=== PATIENT | male | born 1950 | race African-American/Black ===

== ENCOUNTER 2016-09-10 07:15 | Emergency (ER) | payer SELFPAY ==
[~2016-09-10] VITALS: Ht 177.8 cm; Wt 79.0 kg
[~2016-09-10 07:15] MED LIST: MELO15TA2 PO; METHO500 PO; TRAM50 PO
[2016-09-10 07:17] VITALS: BP 183/115; PULSE 77; RESP 16; TEMP 98; O2SAT 100
[2016-09-10 07:27] VITALS: BP 179/104
--- NOTE | 2016-09-10 07:55 | PD ---
HPI . chronic back pain and sciatica Chief Complaint: Injury Time Seen by Provider: 07:55 Travel History International Travel<30 days: No Contact w/Intl Traveler<30days: No Traveled to known affect area: No History of Present Illness HPI 65-year-old male with long-standing history of chronic back pain, who usually follows with the [facility] with complaints of back pain and sciatica on the right side of his lower extremity. Patient says he has a long-standing history of sciatica and usually takes pain medicine to get rid of the symptoms. He requests 30 lortabs and states that usually works well for him. He states the pain is radiating from the right buttocks all the way down to the knee. He reports falling several days prior, but denies any injury. He denies any loss of consciousness or head trauma. Patient denies any saddle anesthesia, bowel or bladder dysfunction. He is requesting MRI, and tells me he has not had one several years. Patient's blood pressure is elevated, however patient states his blood pressure remains elevated whenever he is in bouts of pain. He denies any history of hypertension. PFSH Past Medical History Arthritis: Yes Asthma: No Heart Rhythm Problems: No Cardiovascular Problems: No High Cholesterol: No Chest Pain: No Congestive Heart Failure: No COPD: No Cerebrovascular Accident: No GERD: No Genitourinary: No Headaches: No Hepatitis: Yes (HEP C) Hiatal Hernia: No Hypertension: Yes Kidney Stones: No Musculoskeletal: Yes (CHRONIC BACK PAIN / SCIATICA) Neurologic: No Reproductive: No Respiratory: No Migraines: No Myocardial Infarction: No Renal Failure: No Seizures: No Sleep Apnea: No Ulcer: No Past Surgical History Abdominal Surgery: No Appendectomy: No Cardiac Surgery: No Cholecystectomy: No Ear Surgery: No Endocrine Surgery: No Eye Surgery: No Genitourinary Surgery: No Gynecologic Surgery: No Oral Surgery: No Thoracic Surgery: No Other Surgery: Yes (I&D SPIDERBITE/INFECTION 2008) Social History Alcohol Use: Yes ( DAILY) Tobacco Use: Yes (1/2 PPD) Substance Use: Yes (THC DAILY) Allergies-Medications (Allergen,Severity, Reaction): Coded Allergies: No Known Allergies (Verified , 09/10/16) Reported Meds & Prescriptions Reported Meds & Active Scripts Active Ibuprofen 800 Mg Tab 800 Mg PO TID Flexeril (Cyclobenzaprine HCl) 10 Mg Tab 10 Mg PO BID Review of Systems Except as stated in HPI: all other systems reviewed are Neg General / Constitutional: No: Fever Eyes: No: Visual changes HENT: No: Headaches Cardiovascular: No: Chest Pain or Discomfort Respiratory: No: Shortness of Breath Gastrointestinal: No: Abdominal Pain Genitourinary: No: Dysuria Musculoskeletal: Positive: Arthralgias, Limited ROM, Pain (right leg pain), No : Myalgias, Weakness Skin: No Rash Neurologic: No: Weakness Psychiatric: No: Depression Endocrine: No: Polydipsia Hematologic/Lymphatic: No: Easy Bruising Physical Exam Narrative GENERAL: AAO x 3, no acute distress, Well-nourished, well-developed patient. SKIN: Warm and dry. No visible rashes or bruising. HEAD: Normocephalic and atraumatic. EYES: No scleral icterus. Clear Fundi. ENT: No nasal drainage noted. Airway patent. NECK: Supple, trachea midline. No JVD. CARDIOVASCULAR: Regular rate and rhythm without murmurs, gallops, or rubs. RESPIRATORY: Breath sounds equal bilaterally. No accessory muscle use. No rhonchi or rales. GASTROINTESTINAL: Abdomen soft, non-tender, nondistended. EXTREMITIES: No cyanosis or edema. BACK: Right gluteus + pain with palpation. Gait slightly ataxic with slight limp , uses cane for stability. Nontender without obvious deformity. No spinal tenderness. Negative straight leg raise. PSYCH: AAO x 3, normal affect. Data Data Last Documented VS Vital Signs Date Time Temp Pulse Resp B/P Pulse Ox O2 Delivery O2 Flow Rate FiO2 09/10/16 07:27 179/104 09/10/16 07:17 98.0 77 16 100 [facility] Medical Decision Making Medical Screen Exam Complete: Yes Emergency Medical Condition: Yes Medical Record Reviewed: Yes (chronic back pain, Xray reviewed from 2002) Differential Diagnosis sciatica. chronic back pain, leg strain, HTN without hx. Narrative Course 65-year-old male with long-standing history of chronic back pain [facility] complaints of back pain and sciatica on the right side of his lower extremity. Patient says he has a long-standing history of sciatica and usually takes pain medicine to get rid of the symptoms. He states the pain is radiating from the right buttocks all the way down to the knee. He reports falling several days prior, but denies any injury. He denies any loss of consciousness or head trauma. He denies any saddle anesthesia , bowel or bladder dysfunction. Patient no acute distress. He is able to ambulate around the room without assistance, but uses a cane for stability. No acute abnormalities on examination except for tenderness along the right gluteus with palpation. No tenderness along spine. Diagnosis Primary Impression: Sciatic leg pain Additional Impressions: Lumbago Qualified Code: M54.41 - Chronic low back pain with right-sided sciatica, unspecified back pain laterality Elevated blood pressure reading without diagnosis of hypertension Patient Instructions: Acute Low Back Pain (ED), General Instructions, Hypertension (DC), Sciatica (ED) Additional Instructions: As we discussed, [facility] with [facility] for [facility], including the MRI you requested. Also discuss your blood pressure with your primary care provider and have them follow it to make sure it doesn't remain elevated. Take medications as prescribed. Patient verbalized understanding of instructions, questions were answered, and thanked me for their care. I advised them if their condition worsens, please return to the nearest emergency room for further care. Med/Other Pt SpecificInfo: Prescription(s) given Scripts Ibuprofen 800 Mg Lpp275 Mg PO TID #90 TAB Ref 0 Prov:Daya Sherman 09/10/16 Cyclobenzaprine (Flexeril)10 Mg Tab10 Mg PO BID #60 TAB Ref 0 Prov:Daya Sherman 09/10/16 Disposition: 01 DISCHARGE HOME Condition: Stable Daya Sherman Sep 10, 2016 07:55
[2016-09-10] MEDS ORDERED: IBUP800T23 PO (08:06)
[2016-09-10] MEDS ORDERED: CYCL1TAB29 PO (08:06)
== END 2016-09-10 08:31 | disposition home or self-care (01) ==
LOC: NEPB 07:15
DX: M54.5 Low back pain (principal); R03.0 Elevated blood-pressure reading, without diagnosis of hypertension; G89.29 Other chronic pain; F17.210 Nicotine dependence, cigarettes, uncomplicated
CPT/HCPCS: 99283